=== PATIENT | male | born 1960 | race Caucasian/White ===

== ENCOUNTER 2021-12-04 10:51 | Inpatient (IN) | payer BC, OTHER ==
[~2021-12-04 10:51] MED LIST: REGADENOSON 0.4 MG/5 ML SYR IV ONE
--- NOTE | 2021-12-04 11:42 | RAD REPORT ---
EXAM DESCRIPTION: Reddy Single View12/04/2021 11:37 am CLINICAL HISTORY: Chest pain COMPARISON: none FINDINGS: The lungs appear clear of acute infiltrate. The heart is normal size IMPRESSION: No acute abnormalities displayed
[2021-12-04 11:47] LABS: Absolute Lymphocytes (CBC) 1.4 K/uL (0.7-4.9); Hematocrit 43.1 % (39.6-49.0); Lymphocytes % 22.1 % (15.3-44.8); MCV 90.2 fL (80-100); RBC Red Blood Cell Count 4.78 M/uL (4.33-5.43)
[2021-12-04 12:08] LABS: Potassium 4.1 mmol/L (3.5-5.1); Troponin High Sensitivity 5.3 pg/mL (<58.9)
--- NOTE | 2021-12-04 12:27 | ER ---
Nurse's Notes [facility] Name: Juaquin Meneses Age: 61 yrs Sex: Male : 1960 Arrival Date: 12/04/2021 Time: 10:55 Bed 17 Private MD: Diagnosis: Chest pain, unspecified Presentation: 12/04 11:30 Note provider at bedside at this time. tw2 11:30 Acuity: GINGER 3 tw2 11:30 Chief complaint: Patient states: chest pain off and on for weeks with numbness of left tw2 5th finger, worse the past 3 days, pain kept pt awake at night. denies sob. Coronavirus screen: At this time, the client does not indicate any symptoms associated with coronavirus-19. Ebola Screen: Patient denies travel to an Ebola-affected area in the 21 days before illness onset. Initial Sepsis Screen: Does the patient meet any 2 criteria? No. Patient's initial sepsis screen is negative. Does the patient have a suspected source of infection? No. Patient's initial sepsis screen is negative. Risk Assessment: Do you want to hurt yourself or someone else? Patient reports no desire to harm self or others. Onset of symptoms was December 04, 2021. 11:30 Method Of Arrival: Ambulatory tw2 Triage Assessment: 11:30 General: Appears in no apparent distress. well groomed, Behavior is calm, cooperative, tw2 appropriate for age. Pain: Complains of pain in chest. Pain: Pain radiates to dorsal aspect of distal phalanx of left little finger, dorsal aspect of middle phalanx of left little finger, dorsal aspect of proximal phalanx of left little finger, palmar aspect of distal phalanx of left little finger, palmar aspect of middle phalanx of left little finger, palmar aspect of proximal phalanx of left little finger and left little fingernail. EENT: No signs and/or symptoms were reported regarding the EENT system. Neuro: Level of Consciousness is awake, alert, obeys commands, Oriented to person, place, time, situation. Cardiovascular: Reports chest pain, since pt states started couple weeks ago, has gotten worse. about 3 days ago it kept him awake, pt states its an annoyance. denies sob. Respiratory: Airway is patent Respiratory effort is even, unlabored, Respiratory pattern is regular, symmetrical. GI: No signs and/or symptoms were reported involving the gastrointestinal system. Musculoskeletal: Range of motion: intact in all extremities. Historical: - Allergies: 11:32 No Known Allergies; tw2 - Home Meds: 11:32 Simvastatin Oral [Active]; tw2 11:45 tadalafil oral [Active]; tw2 - PMHx: 11:32 Hypercholesterolemia; tw2 11:45 Erectil Dysfunction; tw2 - Immunization history:: Client reports receiving the 2nd dose of the Covid vaccine. - Social history:: Smoking status: Patient denies any tobacco usage or history of. - Family history:: not pertinent. - Hospitalizations: : No recent hospitalization is reported. Screenin:16 Abuse screen: Denies threats or abuse. Nutritional screening: No deficits noted. tw2 Tuberculosis screening: No symptoms or risk factors identified. Fall Risk None identified. Assessment: 11:42 Reassessment: see triage assessment. tw2 12:14 Reassessment: Patient appears in no apparent distress at this time. No changes from tw2 previously documented assessment. Patient and/or family updated on plan of care and expected duration. Pain level reassessed. Patient is alert, oriented x 3, equal unlabored respirations, skin warm/dry/pink. 12:41 Reassessment: provider at bedside at this time. tw2 13:57 Reassessment: Patient appears in no apparent distress at this time. No changes from tw2 previously documented assessment. Patient and/or family updated on plan of care and expected duration. Pain level reassessed. Patient is alert, oriented x 3, equal unlabored respirations, skin warm/dry/pink. 14:50 Reassessment: Patient appears in no apparent distress at this time. No changes from tw2 previously documented assessment. Patient and/or family updated on plan of care and expected duration. Pain level reassessed. Patient is alert, oriented x 3, equal unlabored respirations, skin warm/dry/pink. 15:56 Reassessment: Patient appears in no apparent distress at this time. No changes from tw2 previously documented assessment. Patient and/or family updated on plan of care and expected duration. Pain level reassessed. Patient is alert, oriented x 3, equal unlabored respirations, skin warm/dry/pink. Vital Signs: 11:30 BP 149 / 92; Pulse 66; Resp 17; Temp 98.8(TE); Pulse Ox 99% on R/A; tw2 12:14 BP 117 / 78; Pulse 67; Resp 16; Pulse Ox 95% on R/A; tw2 13:30 Weight 102.06 kg; Height 5 ft. 10 in. (177.80 cm); kr3 13:57 BP 111 / 73; Pulse 59; Resp 15; Pulse Ox 95% on R/A; tw2 14:50 BP 103 / 72; Pulse 59; Resp 17; Pulse Ox 96% on R/A; tw2 15:55 BP 103 / 68; Pulse 62; Resp 15; Pulse Ox 96% on R/A; tw2 13:30 Body Mass Index 32.28 (102.06 kg, 177.80 cm) kr3 ED Course: 10:55 Patient arrived in ED. rg4 11:14 Yehuda Kauffman MD is Attending Physician. rn 11:16 Ruthy Cuellar RN is Primary Nurse. tw2 11:30 Triage completed. tw2 11:30 Bed in low position. Call light in reach. satellite project site monitor on. Pulse ox on. NIBP on. tw2 11:36 Arm band placed on. tw2 11:39 XRAY Chest (1 view) In Process Unspecified. EDMS 11:44 Initial lab(s) drawn, by me, sent to lab. Inserted saline lock: 18 gauge in right mb4 antecubital area, using aseptic technique. Blood collected. 12:26 Stalin Zuleta MD is Hospitalizing Provider. rn 15:56 No provider procedures requiring assistance completed. Patient admitted, IV remains in tw2 place. Administered Medications: 12:40 Drug: Aspirin Chewable Tablet 324 mg Route: PO; tw2 13:57 Follow up: Response: No adverse reaction tw2 Medication: 11:42 VIS not applicable for this client. tw2 Outcome: 12:26 Decision to Hospitalize by Provider. rn 16:13 Admitted to Med/surg accompanied by tech, via wheelchair, room 216, with chart, Report tw2 called to ANTHONY Russ 16:13 Condition: stable 16:13 Instructed on the need for admit. 16:34 Patient left the ED. tw2 Signatures: Dispatcher [employer] EDMS Yehuda Kauffman MD MD rn Wise, Tara, RN RN tw2 Emily Bailey rg4 Rajwinder Segura mb4 Elsie Blevins, RN RN kr3 Corrections: (The following items were deleted from the chart) 11:42 11:30 Chief complaint: Patient states: chest pain off and on with numbness of left hand tw2 tw2 16:13 11:30 Chief complaint: Patient states: chest pain off and on for weeks with numbness of tw2 left 5th finger, worse the past 3 days, kept pt awake. denies sob tw2
--- NOTE | 2021-12-04 12:27 | EDPHYS ---
Physician Documentation [facility] Name: Juaquin Meneses Age: 61 yrs Sex: Male : 1960 Arrival Date: 12/04/2021 Time: 10:55 Bed 17 Private MD: ED Physician Yehuda Kauffman HPI: 12/04 12:15 This 61 yrs old Male presents to ER via Ambulatory with complaints of chest pain. rn 12:15 The patient or guardian reports chest pain that is located primarily in the anterior rn chest wall, left. Onset: 2 week(s) ago. The pain radiates to the left arm. Associated signs and symptoms: Pertinent negatives: abdominal pain, cough, diaphoresis, headache, lightheadedness, shortness of breath, syncope, vomiting. The chest pain is described as a pressure. Duration: The patient or guardian reports multiple episodes, that are intermittent. Modifying factors: The symptoms are alleviated by nothing. the symptoms are aggravated by nothing. Severity of pain: At its worst the pain was moderate in the emergency department the pain has improved. The patient has experienced similar episodes in the past. The patient has not recently seen a physician. Pt reports intermittent chest pain for last 2 weeks, happening more frequently and lasting longer. The other night lasted 2 hours. Family member with DC and in 60s. No previous cardiac w/u.. Historical: - Allergies: 11:32 No Known Allergies; tw2 - Home Meds: 11:32 Simvastatin Oral [Active]; tw2 11:45 tadalafil oral [Active]; tw2 - PMHx: 11:32 Hypercholesterolemia; tw2 11:45 Erectil Dysfunction; tw2 - Immunization history:: Client reports receiving the 2nd dose of the Covid vaccine. - Social history:: Smoking status: Patient denies any tobacco usage or history of. - Family history:: not pertinent. - Hospitalizations: : No recent hospitalization is reported. ROS: 12:15 Constitutional: Negative for fever, chills, and weight loss, Eyes: Negative for injury, rn pain, redness, and discharge, Neck: Negative for injury, pain, and swelling, Cardiovascular: Negative for palpitations, and edema, Respiratory: Negative for shortness of breath, cough, wheezing, and pleuritic chest pain, Abdomen/GI: Negative for abdominal pain, nausea, vomiting, diarrhea, and constipation, Back: Negative for injury and pain, MS/Extremity: Negative for injury and deformity, Skin: Negative for injury, rash, and discoloration, Neuro: Negative for headache, weakness, and seizure. Exam: 11:53 ECG was reviewed by the Attending Physician. rn 12:15 Constitutional: This is a well developed, well nourished patient who is awake, alert, rn and in no acute distress. Head/Face: Normocephalic, atraumatic. Neck: Trachea midline, no thyromegaly or masses palpated, and no cervical lymphadenopathy. Supple, full range of motion without nuchal rigidity, or vertebral point tenderness. No Meningismus. Cardiovascular: Regular rate and rhythm. No pulse deficits. Respiratory: No increased work of breathing, no retractions or nasal flaring. Abdomen/GI: Soft, non-tender Skin: Warm, dry MS/ Extremity: Pulses equal, no cyanosis. Neuro: Awake and alert, GCS 15 Vital Signs: 11:30 BP 149 / 92; Pulse 66; Resp 17; Temp 98.8(TE); Pulse Ox 99% on R/A; tw2 12:14 BP 117 / 78; Pulse 67; Resp 16; Pulse Ox 95% on R/A; tw2 13:30 Weight 102.06 kg; Height 5 ft. 10 in. (177.80 cm); kr3 13:57 BP 111 / 73; Pulse 59; Resp 15; Pulse Ox 95% on R/A; tw2 14:50 BP 103 / 72; Pulse 59; Resp 17; Pulse Ox 96% on R/A; tw2 15:55 BP 103 / 68; Pulse 62; Resp 15; Pulse Ox 96% on R/A; tw2 13:30 Body Mass Index 32.28 (102.06 kg, 177.80 cm) kr3 MDM: 11:14 Patient medically screened. rn 12:15 Differential diagnosis: acute myocardial infarction, acute pericarditis, anxiety, rn coronary artery disease costochondritis, pleurisy, pneumothorax, stable angina. 12:25 The patient was given aspirin in the Emergency Department. Data reviewed: vital signs, rn nurses notes, lab test result(s), EKG, radiologic studies, plain films, and as a result, I will admit patient. 12:25 Counseling: I had a detailed discussion with the patient and/or guardian regarding: the rn historical points, exam findings, and any diagnostic results supporting the discharge/admit diagnosis, lab results, radiology results, the need for further work-up and treatment in the hospital. 12:25 Counseling: I had a detailed discussion with the patient and/or guardian regarding: the rn need for further work-up and treatment in the hospital. Admission orders: after a detailed discussion of the patient's condition and case, the admit orders are written by me. 12/04 11:25 Order name: Basic Metabolic Panel; Complete Time: 12:15 rn 12/04 11:25 Order name: CBC with Diff; Complete Time: 12:15 rn 12/04 11:25 Order name: NT PRO-BNP; Complete Time: 12:15 rn 12/04 11:25 Order name: Troponin HS; Complete Time: 12:15 rn 12/04 11:25 Order name: SARS-COV-2 RT PCR (Document "Date of Onset" if Symptomatic) 12/04 13:19 Order name: Troponin High Sensitivity [facility] 12/04 11:25 Order name: XRAY Chest (1 view); Complete Time: 11:48 rn 12/04 13:19 Order name: Troponin High Sensitivity [facility] 12/04 13:19 Order name: Basic Metabolic Panel [facility] 12/04 13:19 Order name: Basic Metabolic Panel [facility] 12/04 13:19 Order name: CBC with Automated Diff [facility] 12/04 13:19 Order name: CBC with Automated Diff [facility] 12/04 13:19 Order name: Lipid Profile [facility] 12/04 13:19 Order name: Lipid Profile [facility] 12/04 11:25 Order name: EKG; Complete Time: 11:26 rn 12/04 11:25 Order name: Cardiac monitoring; Complete Time: 11:52 rn 12/04 11:25 Order name: EKG - Nurse/Tech; Complete Time: 11:52 rn 12/04 11:25 Order name: IV Saline Lock; Complete Time: 12:14 rn 12/04 11:25 Order name: Labs collected and sent; Complete Time: 12:14 rn 12/04 11:25 Order name: O2 Per Protocol; Complete Time: 12:14 rn 12/04 11:25 Order name: O2 Sat Monitoring; Complete Time: 12:14 rn 12/04 13:19 Order name: CONS Physician Consult [facility] 12/04 13:19 Order name: Heart Healthy EDIA 12/04 13:19 Order name: Echo with Doppler EDIA EC:53 Rate is 71 beats/min. Rhythm is regular. QRS [place] is Normal. [place] interval is normal. QRS rn interval is normal. QT interval is normal. No Q waves. T waves are Normal. No ST changes noted. Clinical impression: Normal ECG. Interpreted by me. Reviewed by me. Administered Medications: 12:40 Drug: Aspirin Chewable Tablet 324 mg Route: PO; tw2 13:57 Follow up: Response: No adverse reaction tw2 Disposition Summary: 12/04/21 12:26 Hospitalization Ordered Hospitalization Status: Observation rn Provider: Stalin Zuleta rn Location: Telemetry/MedSurg (observation) rn Condition: Stable rn Problem: an ongoing problem rn Symptoms: have improved rn Bed/Room Type: Standard rn Room Assignment: 216(12/04/21 15:40) kj1 Diagnosis - Chest pain, unspecified rn Forms: - Medication Reconciliation Form rn - SBAR form rn Signatures: Dispatcher [employer] [facility] Yehuda Kauffman MD MD rn Wise, Tara, RN RN tw2 Urmila Sorensen kj1 Corrections: (The following items were deleted from the chart) 12:26 12:25 Special discussion: I discussed with the patient/guardian in detail that at this rn point there is no indication for admission to the hospital. It is understood, however, that if the symptoms persist or worsen the patient needs to return immediately for re-evaluation. rn 15:40 12:26 rn kj1
[2021-12-04] MEDS ORDERED: ASPIRIN 81 MG CHEWABLE TABLET ONE (12:41)
[2021-12-04] MEDS ORDERED: ALPRAZOLAM 0.25 MG TABLET PO PRN (13:14)
[2021-12-04] MEDS ORDERED: ACETAMINOPHEN 500 MG TAB PO PRN (13:14)
[2021-12-04] MEDS ORDERED: MORPHINE 2 MG/ML SYR IV PRN (13:32)
[2021-12-04 16:52] VITALS: BMI 32.3
[2021-12-04] MEDS: METOPROLOL TAR 50 MG TAB PO SCH (20:50)
--- NOTE | 2021-12-04 23:21 | P.HP ---
Certification for Inpatient Patient admitted to: Observation With expected LOS: <2 Midnights Patient will require the following post-hospital care: None Practitioner: I am a practitioner with admitting privileges, knowledge of patient current condition, hospital course, and medical plan of care. Services: Services provided to patient in accordance with Admission requirements found in Title 42 Section 412.3 of the Code of Federal Regulations Patient History Date of Service: 12/04/21 Reason for admission: chest pain rule out acute coronary syndrome History of Present Illness: patient is a 61-year-old gentleman came to hospital with chest discomfort. Pain was mainly in the sternal region. He got a little diaphoretic and pain went to the left shoulder. Patient came to the ER for further evaluation. In the ER his troponins and EKG have been unremarkable. We will go ahead and admit the patient to the hospital for further evaluation. Allergies No Known Allergies Allergy (Unverified 12/04/21 13:25) Home Medications: Simvastatin 1 tab PO DAILY 12/04/21 Tadalafil [Cialis] 1 tab PO EVERY 7TH DAY 12/04/21 - Past Medical/Surgical History Has patient received pneumonia vaccine in the past: No Diabetic: No -: Hyperlipidemia Past Surgical History: Patient denies surgical history - Family History Mom Medical History: Heart disease, Hypertension, Diabetes Dad Medical History: Stroke - Social History Smoking Status: Former smoker Alcohol use: Yes CD- Drugs: No Review of Systems 10-point ROS is otherwise unremarkable Physical Examination - Vital Signs Temperature: 97.3 F Blood Pressure: 127/71 Pulse: 61 Respirations: 16 Pulse Ox (%): 97 - Physical Exam General: Alert, In no apparent distress, Oriented x3 HEENT: Atraumatic, PERRLA, Mucous membr. moist/pink, EOMI, Sclerae nonicteric Neck: Supple, 2+ carotid pulse no bruit, No LAD, Without JVD or thyroid abnormality Respiratory: Clear to auscultation bilaterally, Normal air movement Cardiovascular: Regular rate/rhythm, Normal S1 S2, No murmurs Gastrointestinal: Normal bowel sounds, Soft and benign, Non-distended, No tenderness Musculoskeletal: No clubbing, No swelling, No tenderness Integumentary: No rashes Neurological: Normal gait, Normal speech, Normal strength at 5/5 x4 extr, Normal tone, Sensation intact, Cranial nerves 3-12 intact, Normal affect Lymphatics: No axilla or inguinal lymphadenopathy - Studies Laboratory Data (last 24 hrs) 12/04/21 11:40: Triglycerides 325 H, Cholesterol 208 H, HDL Cholesterol 42, Cholesterol/HDL Ratio 4.95 12/04/21 11:40: WBC 6.1, Hgb 15.1, Hct 43.1, Plt Count 195 12/04/21 11:40: Sodium 140, Potassium 4.1, BUN 17, Creatinine 1.14, Glucose 100 Assessment & Plan - Problems (Diagnosis) (1) Chest pain, rule out acute myocardial infarction Current Visit: Yes Status: Acute (2) History of tobacco use Current Visit: Yes Status: Acute (3) Dyslipidemia Current Visit: Yes Status: Acute - Plan 1. Serial troponins and EKG 2. Appreciate Cardiology consultation 3. Echocardiogram and stress test 4. Anti-platelet therapy, anti coagulation, beta-bryan, statin, and O2 as needed 5. IV morphine for pain 6. Nitro p.r.n. - Advance Directives Does patient have a Living Will: Yes Does patient have a Durable POA for Healthcare: No
[2021-12-05 04:11] LABS: Hematocrit 41.2 % (39.6-49.0); Lymphocytes % 30.9 % (15.3-44.8); MCV 89.9 fL (80-100); MPV 7.2 fL (7.6-11.3); RBC Red Blood Cell Count 4.58 M/uL (4.33-5.43)
[2021-12-05 04:24] LABS: Potassium 4.1 mmol/L (3.5-5.1); Troponin High Sensitivity 8.1 pg/mL (<58.9)
[2021-12-05] MEDS: METOPROLOL TAR 50 MG TAB PO SCH ×2 (07:39→21:00)
--- NOTE | 2021-12-05 07:51 | EKG ---
Test Date: 2021-12-04 Test Time: 11:50:29 Glued Wood Tester: NICKY MEASUREMENT RESULTS: Intervals: Rate: 71 OH: 170 QRSD: 90 QT: 382 QTc: 415 [place]: P: 19 OH: 170 QRS: 30 T: 41 INTERPRETIVE STATEMENTS: Normal sinus rhythm with sinus arrhythmia Normal ECG No previous ECG available for comparison Electronically Signed On 12-05-21 07:48:30 CDT by Olegario Carreno
[2021-12-05] MEDS ORDERED: ENOXAPARIN 40 MG/0.4 ML SQ SCH (09:00)
[2021-12-05] MEDS: ASPIRIN EC 81 MG TAB PO SCH (09:55)
[2021-12-05] MEDS: lisinopriL 10 MG TAB PO SCH (09:55)
--- NOTE | 2021-12-05 11:52 | ECHO ---
HEIGHT: 5 ft 10 in WEIGHT: 225 lb 8.526 oz DATE OF STUDY: 12/05/[address]: Stalin Zuleta MD 2-DIMENSIONAL: YES M.MODE: YES DOPPLER: YES COLOR FLOW: YES TDS: NO PORTABLE: NO DEFINITY: NO BUBBLE STUDY: NO DIAGNOSIS: CHEST PAIN CARDIAC HISTORY: CATHERIZATION: SURGERY: PROSTHETIC VALVE: PACEMAKER: MEASUREMENTS (cm) DIASTOLIC (NORMALS) SYSTOLIC (NORMALS) IVSd 0.9 (0.6-1.2) LA Diam 3.9 (1.9-4.0) LVEF 61% LVIDd 4.8 (3.5-5.7) LVIDs 3.2 (2.0-3.5) %FS 33% LVPWd 1.2 (0.6-1.2) Ao Diam 3.0 (2.0-3.7) 2 DIMENSIONAL ASSESSMENT: RIGHT ATRIUM: NORMAL LEFT ATRIUM: NORMAL RIGHT VENTRICLE: NORMAL LEFT VENTRICLE: NORMAL TRICUSPID VALVE: NORMAL MITRAL VALVE: NORMAL PULMONIC VALVE: NORMAL AORTIC VALVE: NORMAL PERICARDIAL EFFUSION: NONE AORTIC ROOT: NORMAL LEFT VENTRICULAR WALL MOTION: NORMAL. DOPPLER/COLOR FLOW: NORMAL. COMMENTS: NORMAL 2D ECHO WITH DOPPLER. NO WALL MOTION ABNORMALITY. NO EFFUSION. TECHNOLOGIST: EMMANUELLE ZARATE
--- NOTE | 2021-12-05 12:50 | RAD REPORT ---
EXAM DESCRIPTION: NM - Rest Stress Cardiac Imaging - 12/05/2021 12:31 pm CLINICAL HISTORY: Chest pain COMPARISON: None. TECHNIQUE: The patient was administered 10.1 mCi of Tc 99m Sestamibi prior to resting SPECT imaging of the heart. The patient was then administered 30.7 mCi of Tc 99m Sestamibi following exercise or ph armacologic stress. Multiplanar SPECT images were reviewed. FINDINGS: The end diastolic volume is 124 ml, the end systolic volume is 53 ml, and the ejection fra ction is 57 %. Mild to moderate decrease in activity in stress imaging seen at the apex. This is not present on the rest sequencing. No other area of possible stress ischemia or scarred myocardium. IMPRESSION: Stress ischemic changes are present involving the left ventricular apex. End-diastolic volume calculated 124 milliliters. Ejection fraction calculated as 57%.
[2021-12-05 18:36] LABS: Protime INR 1.01
--- NOTE | 2021-12-06 00:06 | P.PN ---
Subjective Date of Service: 12/05/21 patient with vague chest discomfort. Not really improved. Stress test with reversible ischemia in the LV apex. Review of Systems 10-point ROS is otherwise unremarkable Physical Examination - Vital Signs Temperature: 97.7 F Blood Pressure: 99/58 Pulse: 62 Respirations: 14 Pulse Ox (%): 95 - Physical Exam General: Alert, In no apparent distress HEENT: Atraumatic, PERRLA, EOMI Neck: Supple, JVD not distended Respiratory: Clear to auscultation bilaterally, Normal air movement Cardiovascular: Regular rate/rhythm, Normal S1 S2 Gastrointestinal: Normal bowel sounds, No tenderness Musculoskeletal: No tenderness Integumentary: No rashes Neurological: Normal speech, Normal tone, Normal affect Lymphatics: No axilla or inguinal lymphadenopathy - Studies Laboratory Data (last 24 hrs) 12/05/21 03:51: Sodium 140, Potassium 4.1, BUN 22 H, Creatinine 1.08, Glucose 93 12/05/21 03:51: WBC 6.6, Hgb 14.7, Hct 41.2, Plt Count 193 Medications List Reviewed: Yes Assessment & Plan - Problems (Diagnosis) (1) Chest pain, rule out acute myocardial infarction Current Visit: Yes Status: Acute (2) History of tobacco use Current Visit: Yes Status: Acute (3) Dyslipidemia Current Visit: Yes Status: Acute - Plan 1. Patient scheduled for left heart catheterization in the morning 2. Appreciate Cardiology consultation 3. Echocardiogram is within normal limits and stress test with reversible ischemia. 4. Anti-platelet therapy, anti coagulation, beta-bryan, statin, and O2 as needed 5. IV morphine for pain 6. Nitro p.r.n. Discharge Plan: Home Plan to discharge in: Greater than 2 days - Advance Directives Does patient have a Living Will: Yes Does patient have a Durable POA for Healthcare: No - Code Status/Comfort Care Code Status Assessed: Yes Code Status: Full Code Critical Care: No Time Spent Managing PTS Care (In Minutes): 35
--- NOTE | 2021-12-06 07:19 | TREADPHA ---
DX: CHEST PAIN Date of Study: 12/05/2021 Ht: 5' 10 " Wt: 225 lb 8.526 oz Consulting Physician: SANTA MEDICATIONS: LOVENOX, PRINIVIL, LOPRESSOR HISTORY: 61 YEAR OLD MALE WITH COMPLAINTS OF CHEST PAIN. NO HISTORY. NON-SMOKER, OCCASIONAL DRINKER. PHYSICIAL EXAMINATION: RESTING B.P.: 114/61 RESTING H.R.: 54 RESTING EKG: NORMAL PROTOCOL: PHARMACOLOGIC EXERCISE TIME: 3:30 B.P. AT [place]AK STRESS: 121/59 IMPRESSION: LEXISCAN INJECTED FOLLOWED BY CARDIOLITE PER PROTOCOL. SEE NUCLEAR MEDICINE REPORT. NO SUPRAVENTRICULAR TACHYCARDIA, VENTRICULAR TACHYCARDIA, PREMATURE ATRIAL COMPLEXES, PREMATURE VENTRICULAR COMPLEXES. PATIENT REPORTS NO CHEST PAIN.
[2021-12-06] MEDS: lisinopriL 10 MG TAB PO SCH (09:00)
[2021-12-06] MEDS: METOPROLOL TAR 50 MG TAB PO SCH (09:00)
[2021-12-06] MEDS: ASPIRIN EC 81 MG TAB PO SCH (10:02)
[2021-12-06] MEDS ORDERED: NA CHLORIDE 0.9% 500 ML ONE (11:10)
[2021-12-06] MEDS ORDERED: HEPA 1000U/500MLS 2,000 UNIT/1,000 ML BAG IV ONE (11:10)
[2021-12-06] MEDS ORDERED: MIDAZOLAM HCL 2 MG/2 ML INJ ONE (11:16)
[2021-12-06] MEDS ORDERED: CLOPIDOGREL 75 MG TABLET ONE (11:16)
[2021-12-06] MEDS ORDERED: ASPIRIN 325 MG TAB ONE (11:16)
[2021-12-06] MEDS ORDERED: HEPARIN 5000 UNIT/ML 1 ML VIAL ONE (11:16)
[2021-12-06] MEDS ORDERED: FENTANYL CITR 100 MCG/2 ML ONE (11:16)
[2021-12-06] MEDS ORDERED: VERAPAMIL HCL 10 MG/4 ML VIAL IV ONE (11:16)
[2021-12-06] MEDS ORDERED: HEPARIN 10,000 UNIT/10 ML VIAL IV ONE (11:17)
[2021-12-06] MEDS ORDERED: TICAGRELOR 90 MG TABLET PO ONE (11:17)
[2021-12-06] MEDS ORDERED: ATROPINE SULF 1 MG/10 ML SYR IV ONE (11:17)
[2021-12-06 14:51] VITALS: O2SAT 97
--- NOTE | 2021-12-06 15:31 | OP ---
Date of Procedure: 12/06/2021 Surgeon: ORIANA MEZA Procedures Performed: 1.Selective coronary angiogram. 2.Left heart catheterization. Indication: Unstable angina with abnormal stress test. Access: Right radial artery 6-Slovenian closed with TR band. Complications: None. Bleeding: Less than 10 mL. Anesthesia: Total sedation time was 35 minutes. Used fentanyl and Versed. Description Of Procedure: After risks, benefits, and alternatives were explained, the patient agreed to the procedure and signed informed consent. The patient was brought into the cardiac catheterizat ion laboratory, prepped and draped in the usual sterile fashion. Then, we accessed right radial pancho ry using pediatric micropuncture kit and placed a 6-Slovenian Slender sheath and took 5-Slovenian [place] 4.0 catheter over a J-wire into the aortic root and passed it across the aortic valve into the LV. Lio ured the LVEDP and pullback did not record gradient. Then, I engaged left main, took standard views and using same catheter engaged the RCA and took standard views, and catheter was removed. Sheath wa s removed and placed TR with good hemostasis. Findings: 1.Left main; large, normal. 2.LAD; large with very mild luminal irregularities throughout. Normal diagonal branches. 3.Left circumflex; moderate-size vessel, non-dominant. No disease. 4.RCA; very large and dominant vessel with luminal irregularities. 5.Borderline elevated LVEDP at 40 mmHg. Conclusion: 1.Very mild nonobstructive coronary artery disease. 2.Mildly elevated LVEDP at 40 mmHg. Plan: 1.Medical management. Risk factor modification. 2.Search for other causes of chest pain. SR/MODL Voice ID: [id number] Report ID: [id number]
[2021-12-06 17:09] VITALS: BP 142/77; TEMP 97.5
--- NOTE | 2021-12-08 10:11 | CON ---
Date of Consultation: 12/05/2021 The patient was admitted on 12/04/[address] Kauffman for chest pain. I saw the patient on 12/05/2021. History Of Present Illness: Mr. Meneses is a 61-year-old white male. Has a strong family history of heart disease. Has a history of hypercholesterolemia for which he takes simvastatin. Came in with chest pain in the anterior chest wall that has been going on for about 2 weeks. It radiates to the l eft arm. He denies any nausea, vomiting, diaphoresis, PND, orthopnea, pedal edema, palpitations, or syncope. He described the pain as a chest tightness that is not exertional. Past Medical History: Otherwise stated above. Allergies: HE IS ALLERGIC TO NO MEDICATIONS. Medications: At home include simvastatin and Cialis. Review of Systems: Negative. Social History: Negative. Family History: Positive for heart disease in their 60s. Physical Examination: Vital Signs: Stable, afebrile. HEENT: Negative. Neck: Supple with no bruit. Chest: Clear to auscultation and percussion. Cardiac: Revealed a regular rhythm and rate. No murmurs, gallops, or rubs. Abdomen: Benign. Extremities: Revealed no clubbing, cyanosis, or edema. Diagnostic Data: EKG was normal. Chest x-ray was normal. Troponin was negative. Impression And Plan: Atypical chest pain in a patient with dyslipidemia, strong family history of he art disease. I think we need to do an echocardiogram and a stress test on him before he goes home. Depending on the findings, we may or may not do a heart catheterization on him. ROXANA/DAKOTAH Voice ID: [id number] Report ID: [id number]
--- NOTE | 2021-12-10 09:53 | P.DS ---
Discharge Date: 12/06/21 Disposition: ROUTINE DISCHARGE Discharge Condition: GOOD Reason for Admission: chest pain rule out acute coronary syndrome - Problems (1) Chest pain, rule out acute myocardial infarction Status: Acute (2) History of tobacco use Status: Acute (3) Dyslipidemia Status: Acute Brief History of Present Illness: patient is a 61-year-old gentleman came to hospital with chest discomfort. Pain was mainly in the sternal region. He got a little diaphoretic and pain went to the left shoulder. Patient came to the ER for further evaluation. In the ER his troponins and EKG have been unremarkable. We will go ahead and admit the patient to the hospital for further evaluation. Hospital Course: Patient's stress test came back positive. Patient had a cardiac catheterization performed. Patient had kyew-zi-serberoh coronary artery disease but did not need any stent. Patient is clinically doing well and stable for discharge home. Vital Signs/Physical Exam: Temp Pulse Resp BP Pulse Ox 97.5 F 61 17 142/77 H 94 12/06/21 16:00 12/06/21 16:00 12/06/21 16:00 12/06/21 16:00 12/06/21 16:00 General: Alert, In no apparent distress, Oriented x3 Laboratory Data at Discharge: WBC 6.6 K/uL (4.3-10.9) 12/05/21 03:51 Hgb 14.7 g/dL (13.6-17.9) 12/05/21 03:51 Hct 41.2 % (39.6-49.0) 12/05/21 03:51 Plt Count 193 K/uL (152-406) 12/05/21 03:51 PT 11.1 SECONDS (9.5-12.5) 12/05/21 18:03 INR 1.01 12/05/21 18:03 APTT 35.2 SECONDS (24.3-36.9) 12/05/21 18:03 Sodium 140 mmol/L (136-145) 12/05/21 03:51 Potassium 4.1 mmol/L (3.5-5.1) 12/05/21 03:51 BUN 22 mg/dL (7-18) H 12/05/21 03:51 Creatinine 1.08 mg/dL (0.55-1.3) 12/05/21 03:51 Glucose 93 mg/dL (74-106) 12/05/21 03:51 Triglycerides 325 mg/dL (<150) H 12/04/21 11:40 Cholesterol 208 mg/dL (<200) H 12/04/21 11:40 HDL Cholesterol 42 mg/dL (40-60) 12/04/21 11:40 Cholesterol/HDL Ratio 4.95 12/04/21 11:40 Home Medications: Simvastatin 1 tab PO DAILY 12/04/21 Tadalafil [Cialis] 1 tab PO EVERY 7TH DAY 12/04/21 Losartan Potassium 25 mg PO DAILY #30 tablet 12/05/21 Metoprolol Tartrate [Lopressor] 25 mg PO BID #60 tab 12/05/21 predniSONE [Prednisone*] 20 mg PO DAILY #5 tab 12/06/21 New Medications: Metoprolol Tartrate [Lopressor] 25 mg PO BID #60 tab Losartan Potassium 25 mg PO DAILY #30 tablet predniSONE [Prednisone*] 20 mg PO DAILY #5 tab Physician Discharge Instructions: OK TO DC IV AND DC HOME FOLLOW-UP WITH PRIMARY CARE PROVIDER IN 1-2 WEEKS FOLLOW-UP WITH CARDIOLOGY IN 1-2 WEEKS RETURN TO THE ER IF Symptoms worsen CALL DR. ANN AT [phone] IF ANY QUESTIONS REGARDING HOSPITAL STAY. PLEASE CALL THE FLOOR AT [phone] IF ANY MEDICATION OR NURSING QUESTIONS. Diet: AHA Activity: Fall precautions Followup: NONE,NONE [Primary Care Provider] - Deni Orr MD [ACTIVE - CAN ADMIT] - Time spent managing pt's care (in minutes): 35
--- OUTSIDE RECORDS SUMMARY | 2021-12-13 01:41 | XMS REPORT | Continuity of Care Document ---
:1960 Author Organization [facility] t Address [address] [place] [address] Care Team Providers Name Role Phone Lincoln HUDSON, Jasmyn Moreno Primary Care Physician [phone] KANDY STARK Attending Clinician Unavailable [id number] Attending Clinician Unavailable Kandy Stark MD Attending Clinician Payers Payer Name Policy Type Policy Number Effective Date Expiration Date [facility] [id number] 2020 [place] 00:00:00 CAPITATED) Problems Condition Condition Condition Status Onset Resolution Last Treating Co mments Source Name Details Category Date Date Treatment Clinician Date No known No known Disease Kelse y active active Seybold problems problems Allergies, Adverse Reactions, Alerts This patient has no known allergies or adverse reactions. Social History Social Habit Start Date Stop Date Quantity Comments Source Exposure to Not sure Meredith schmidt SARS-CoV-2 (event) Tobacco use and 2020-11-13 2020-11-13 Smokeless tobacco Manjit curran Seybold exposure 00:00:00 00:00:00 non-user Sex Ass[birth year] At [birth year] Meredith Meyers ybold 00:00:00 00:00:00 Smoking Status Start Date Stop Date Source Never smoked tobacco Meredith tao Medications Ordered Filled Start Stop Current Ordering Indication Dosage Frequency Signature Comments Components Source Medication Medication Date Date Medication? Clinician (SIG) Name Name Simvastatin Yes [id number] 40mg Take 1 Meredith 40 MG oral 1-05 tablet (40 Sey bold Tablet 00:00: mg total) 00 by mouth daily Tadalafil 2021-0 Yes [id number] 20mg Q24H Take 1 K elsey 20 MG oral 1-05 tablet (20 Sey bold Tablet 00:00: mg total) 00 by mouth daily as needed for erectile dysfunctio n Tadalafil 2021- No [id number] 20mg Q24H Take 1 Meredith 20 MG oral 6-21 - tablet (20 Se ybold Tablet 00:00: 00:00 mg total) 00 :00 by mouth daily as needed for erectile dysfunctio n Simvastatin 2021- No [id number] 40mg Take 1 Meredith 40 MG oral -05-30 tablet (40 Se ybold Tablet 00:00: 00:00 mg total) 00 :00 by mouth daily Immunizations Ordered Immunization Filled Immunization Date Status Commen ts Source Name Name Covid-19 Vaccine 2020-07-22 Completed Meredith wilson (Moderna), Mrna-lnp, 00:00:00 Oz Protein, Pf, 100 Mcg/0.5ml,IM Covid-19 Vaccine 2020-06-24 Completed Meredith wilson (Moderna), Mrna-lnp, 00:00:00 Oz Protein, Pf, 100 Mcg/0.5ml,IM Tdap- (Boostrix, 2015-07-03 Completed Meredith wilson Adacel) 00:00:00 Td- Tetanus & 2005-03-07 Completed Meredith Braun old Diphtheria Vaccine 00:00:00 (age 7+ years) Vital Signs Vital Name Observation Time Observation Value Comments Source Systolic blood pressure 2021-05-30 22:06:00 120 mm[Hg] Meredith Padron Diastolic blood 2021-05-30 22:06:00 76 mm[Hg] Hans Padron pressure Heart rate 2021-05-30 22:06:00 64 /min Meredith wilson Body temperature 2021-05-30 22:06:00 36.83 Janie Meche mena ybaislinn Respiratory rate 2021-05-30 22:06:00 14 /min Meche mena arlette Body height 2021-05-30 22:06:00 177.8 cm Meredith wilson Body weight 2021-05-30 22:06:00 105.688 kg Meredith wilson BMI 2021-05-30 22:06:00 33.43 kg/m2 Meredith menaash Procedures This patient has no known procedures. Encounters Start End Encounter Admission Attending Care Care Encounter Source Date/Time Date/Time Type Type Clinicians Facility Department ID 2021-12-12 2021-12-12 Outpatient MEREDITH STARK [id number] Meredith 00:00:00 00:00:00 JASMYN Seybol d 2021-12-04 2021-12-04 Outpatient MEREDITH STARK [id number] Meredith 00:00:00 00:00:00 JASMYN Seybol d 2021-06-26 2021-06-26 Outpatient MEREDITH STARK [id number] Meredith 00:00:00 00:00:00 JASMYN Seybol d 2021-06-26 2021-06-26 Outpatient MEREDITH STARK [id number] Meredith 00:00:00 00:00:00 JASMYN Seybol d 2021-05-31 2021-05-31 Outpatient [facility]90 MEREDITH CHANDLER [id number] Meredith 08:00:00 08:00:00 Seybol d 2021-05-30 2021-05-30 Office Neo Stark [id number] Meredith 16:00:00 16:30:00 Visit Jasmyn Sorensen [id number] arlette Moreno [id number] 2021-03-14 2021-03-14 Outpatient MEREDITH STARK [id number] Meredith 00:00:00 00:00:00 JASMYN Seybol d Results This patient has no known results.
== END 2021-12-06 18:15 | disposition home or self-care (01) | DRG 287 ==
LOC: ER 10:51 → ERHOLD 13:15 → 2ND 16:27 → OBSVTOIN 12-05 13:19
PROVIDERS: ADMIT Hospitalist; ATTEND Hospitalist
PROC: 4A023N7 Measurement of Cardiac Sampling and Pressure, Left Heart, Percutaneous Approach (ICD-10-PCS; principal; 2021-12-06)
PROC: B2011ZZ Plain Radiography of Multiple Coronary Arteries using Low Osmolar Contrast (ICD-10-PCS; 2021-12-06)
DX: I25.110 Atherosclerotic heart disease of native coronary artery with unstable angina pectoris (principal); E78.5 Hyperlipidemia, unspecified; E78.00 Pure hypercholesterolemia, unspecified; Z20.822 Contact with and (suspected) exposure to COVID-19; Z87.891 Personal history of nicotine dependence
CPT/HCPCS: 36415; 71045; 78452; 80048; 80061; 83880; 84484; 85025; 85610; 85730; 93005; 93017; 93306; 93458; 99285; A9500; C1893; G0378; J1644; J1650; J2250; J2785; J3010; J7040; Q9966; U0003